=== PATIENT | male | born 1945 | race Caucasian/White ===

== ENCOUNTER 2016-08-17 08:00 | Day surgery (SDC) | payer OTHER, MEDICARE ==
--- NOTE | ~2016-08-17 | EGD ---
EGD REPORT [facility] [address] [place]. [address] NAME: RANDY TRAN : [birth year] STATUS : REG [facility]#: [id number] AGE: 71 ADM/REG DATE : 08/17/16 MR#: [id number] REPORT SERV DATE: 08/17/16 DICTATED BY: LEMUEL MORGAN DATE: 08/17/16 REPORT STATUS : Draft [facility]ANS[facility]IBED BY: [facility] DATE: 08/17/16 [facility] Center Patient Name: Randy Tran Date of : 1945 Attending MD: LEMUEL MORGAN MD Procedure Date No Time: 08/17/2016 Procedure: Upper GI endoscopy Indications: Follow-up of acute gastric ulcer with hemorrhage Referring MD: AISSATOU ENAMORADO Medicines: Monitored Anesthesia Care Complications: No immediate complications. Procedure: Pre-Anesthesia Assessment: - ASA Grade Assessment: III - A patient with severe systemic disease. After obtaining informed consent, the endoscope was passed under direct vision. Throughout the procedure, the patient's blood pressure, pulse, and oxygen saturations were monitored continuously. The GIF [id number] was introduced through the mouth, and advanced to the second part of duodenum. The upper GI endoscopy was accomplished without difficulty. The patient tolerated the procedure well. Findings: The Z-line was irregular and was found at the gastroesophageal junction. Biopsies were taken with a cold forceps for histology. Localized moderate inflammation characterized by erythema was found in the gastric antrum. Biopsies were taken with a cold forceps for histology. The cardia and gastric fundus were normal on retroflexion. Localized moderate inflammation characterized by erosions and erythema was found in the duodenal bulb. Biopsies were taken with a cold forceps for histology. Impression: - Z-line irregular, at the gastroesophageal junction. Biopsied. - Gastritis. Biopsied. - Duodenitis. Biopsied. Recommendation: - Patient has a contact number available for emergencies. The signs and symptoms of potential delayed complications were discussed with the patient. Return to normal activities tomorrow. Written discharge instructions were provided to the patient. - Regular diet. EGD REPORT [address] [address] NAME: RANDY TRAN : [birth year] STATUS : REG [facility]#: [id number] AGE: 71 ADM/REG DATE : 08/17/16 MR#: [id number] REPORT SERV DATE: 08/17/16 DICTATED BY: LEMUEL MORGAN DATE: 08/17/16 REPORT STATUS : Draft TRANSCRIBED BY: BIBA Apparels DATE: 08/17/16 - Continue present medications. - Await pathology results. Procedure Code(s): --- Professional --- 73344, Esophagogastroduodenoscopy, flexible, transoral; with biopsy, single or multiple Diagnosis Code(s): --- Professional --- K22.8, Other specified diseases of esophagus K29.70, Gastritis, unspecified, without bleeding K29.80, Duodenitis without bleeding K25.0, Acute gastric ulcer with hemorrhage CPT copyright 2013 [employer]. All rights reserved. The codes documented in this report are preliminary and upon pizza baker review may be revised to meet current compliance requirements. LEMUEL MORGAN MD 08/17/2016 9:52 AM This report has been signed electronically. Number of Addenda: 0 Note Initiated On: 08/17/2016 9:33 AM Scope Withdrawal Time 0 hours 0 minutes 0 seconds [address] [place] [address]
[~2016-08-17 08:00] MED LIST: ASAB PO; ENDOCET1 TA1 PO; GLUCOPHAGE1000 MG PO; GLUCOTROL5 PO; GLUCPH PO; JANUVIA100 MG PO; JANUVIA25 MG PO; LIPITOR20 PO; LIPITOR40 PO; LOP25 PO; LYRICA100 MG PO; LYRICA300 MG PO; PCET PO; PLAVIX PO; PRIN5 PO; PROTONIX PO; V2; V5 PO; WELLBUTRIN; WELLXL300 PO
== END 2016-08-17 23:59 | disposition home health service (06) ==
LOC: DMU 08:00
PROVIDERS: Internal Medicine Gastroenterology
PROC: 0DB98ZX Excision of Duodenum, Via Natural or Artificial Opening Endoscopic, Diagnostic (ICD-10-PCS; 2016-08-17)
PROC: 0DB68ZX Excision of Stomach, Via Natural or Artificial Opening Endoscopic, Diagnostic (ICD-10-PCS; 2016-08-17)
PROC: 0DB48ZX Excision of Esophagogastric Junction, Via Natural or Artificial Opening Endoscopic, Diagnostic (ICD-10-PCS; principal; 2016-08-17 09:30)
DX: K29.80 Duodenitis without bleeding (principal); K26.9 Duodenal ulcer, unspecified as acute or chronic, without hemorrhage or perforation; K25.0 Acute gastric ulcer with hemorrhage; I10 Essential (primary) hypertension; E11.9 Type 2 diabetes mellitus without complications; G62.9 Polyneuropathy, unspecified; E78.00 Pure hypercholesterolemia, unspecified; M19.90 Unspecified osteoarthritis, unspecified site; K21.9 Gastro-esophageal reflux disease without esophagitis; Z90.49 Acquired absence of other specified parts of digestive tract; Z98.890 Other specified postprocedural states
CPT/HCPCS: 82962; 88305